=== PATIENT | female | born 1940 | race Caucasian/White ===

== ENCOUNTER 2021-05-14 11:11 | Outpatient (CLI) | payer OTHER | END 2021-05-14 23:59 | disposition home or self-care (01) | LOC: VAS 11:11 | PROVIDERS: ATTEND Emergency Medicine | DX: T81.89XS Other complications of procedures, not elsewhere classified, sequela (principal); X58.XXXS Exposure to other specified factors, sequela | CPT/HCPCS: 93925 ==